=== PATIENT | female | born 1970 | race Caucasian/White ===

== ENCOUNTER → 2018-05-16 | Outpatient (CLI) | payer BC ==
[~2018-05-16] MED LIST: ALLEGRA 60MG TA60 MG PO; ANTIVERT 12.512.5 MG PO; GLUCOPHAGE XR500 M1; LASIX 40MG TABL40 MG; LEVAQUIN 750MG750 M1 PO; LIPITOR 10MG10 MG; NEXIUM 40MG40 MG; PERCOCET 325 MG1 TA2 PO; SENOKOT S 50 MG1 TAB PO; SINGULAIR 110 MG/TAB; ZOFRAN 4MG T4 MG/TAB PO; ZOFRAN ODT8 MG PO
== END ==
LOC: MC.RAD 07:27
DX: Z00.00 Encounter for general adult medical examination without abnormal findings (principal); Z12.31 Encounter for screening mammogram for malignant neoplasm of breast

== ENCOUNTER → 2018-08-26 | Outpatient (CLI) | payer BC | LOC: COL.RAD 09:42 | DX: J32.9 Chronic sinusitis, unspecified (principal); J34.89 Other specified disorders of nose and nasal sinuses ==

== ENCOUNTER → 2019-08-03 | Outpatient (CLI) | payer BC | LOC: MC.RAD 10:38 | DX: Z12.31 Encounter for screening mammogram for malignant neoplasm of breast (principal) ==

== ENCOUNTER → 2020-08-04 | Outpatient (CLI) | payer BC | LOC: MC.RAD 10:30 | DX: Z12.31 Encounter for screening mammogram for malignant neoplasm of breast (principal) ==

== ENCOUNTER → 2021-08-22 | Outpatient (CLI) | payer BC | LOC: MC.RAD 10:25 | DX: Z12.31 Encounter for screening mammogram for malignant neoplasm of breast (principal) ==

== ENCOUNTER 2021-08-31 10:00 | Day surgery (SDC) | payer BC ==
[~2021-08-31] VITALS: Ht 177.8 cm; Wt 111.9 kg
[2021-08-31 09:47] VITALS: BP 170/101; PULSE 73; TEMP 97.5
[2021-08-31] MEDS ORDERED: PROTONIX 40MG T40 MG PO (10:05)
[2021-08-31] MEDS ORDERED: COMPLETE MULTI1 TAB PO (10:07)
[2021-08-31 11:50] VITALS: BP 153/87; PULSE 71; TEMP 97.2
[2021-08-31 12:00] VITALS: BP 146/85; PULSE 61
[2021-08-31 12:15] VITALS: BP 162/96; PULSE 59
--- NOTE | 2021-08-31 12:50 | NUR ---
1150 Pt returns from endo procedure via cart and RN assist to [facility] . Pt ambulates from cart to recliner with RN assist. Monitors on and alarms set. Call light within reach. Report received from MELO Grimes. Pt drowsy and allowed to rest. Pt's present in room with pt. 1205 Pt remains sleepy and requests water and muffin. 1220 Pt taking food and drink well. No complications noted, except pt states she still feels tired. 1245 Discharge instructions given to pt and pt's . All questions answered to their satisfaction. Extensive discussion regarding sleepiness following these procedures versus other procedures. Handed to pt are a thank you card and discharge information. 1250 Pt transferred out of the hospital via wheelchair and this RN assist, to private vehicle driven by pt's .
== END 2021-08-31 12:50 | disposition home or self-care (01) ==
LOC: SDCO 10:00
DX: Z12.11 Encounter for screening for malignant neoplasm of colon (principal); K63.5 Polyp of colon; D12.0 Benign neoplasm of cecum; D12.4 Benign neoplasm of descending colon; E11.9 Type 2 diabetes mellitus without complications; I10 Essential (primary) hypertension; K21.9 Gastro-esophageal reflux disease without esophagitis; E78.5 Hyperlipidemia, unspecified; G47.33 Obstructive sleep apnea (adult) (pediatric); E66.9 Obesity, unspecified; Z90.710 Acquired absence of both cervix and uterus; Z79.84 Long term (current) use of oral hypoglycemic drugs; Z79.899 Other long term (current) drug therapy
CPT/HCPCS: J2704; J7030

== ENCOUNTER → 2022-08-23 | Outpatient (CLI) | payer BC ==
[~2022-08-23] MED LIST changes: +COMPLETE MULTI1 TAB PO; +PROTONIX 40MG T40 MG PO
== END ==
LOC: MC.RAD 12:57
DX: Z12.31 Encounter for screening mammogram for malignant neoplasm of breast (principal)